=== PATIENT | female | born 1985 | race Caucasian/White ===

== ENCOUNTER 2021-06-05 13:52 | Outpatient (REF) | payer OTHER, SELFPAY | END 2021-06-05 13:53 | disposition home or self-care (01) | LOC: HO.LNP 13:52 | PROVIDERS: Visit Provider Hospitalist | DX: R50.9 Fever, unspecified (principal); Z20.822 Contact with and (suspected) exposure to COVID-19 | CPT/HCPCS: U0003; U0005 ==

== ENCOUNTER 2021-07-21 18:40 | Emergency (ER) | payer OTHER, SELFPAY ==
--- NOTE | ~2021-07-21 | XR_ITS ---
EXAMINATION: XR ELBOW, RIGHT CLINICAL INFORMATION: Lump. Pain. COMPARISON: None TECHNIQUE: AP, lateral, and oblique views of the right elbow. FINDINGS: Soft tissue swelling around the olecranon. There is a nonunited enthesophyte at the tip of the olecranon. This could be due to fracture of the spur or a chronic change. No prior films for comparison. The joint space is normal. There is no joint effusion. XR/XR elbow RT min 3V IMPRESSION: Soft tissue swelling around the olecranon. Nonunited enthesophyte at the olecranon which may be acute or chronic.
[2021-07-21 20:50] VITALS: BP 161/77; PULSE 76; RESP 16; TEMP 36.7; O2SAT 100; BMI 34.4
--- NOTE | 2021-07-21 23:44 | ED.UPPEXIN ---
HPI - Extremity Injury (Upper) General Chief Complaint: Skin/Abscess/Foreign Body Stated Complaint: ?Cyst on elbow Time Seen by Provider: 07/21/21 23:33 Source: patient Mode of arrival: ambulatory Limitations: no limitations History of Present Illness HPI narrative: Patient hit her right elbow to the car door handle earlier today followed by significant swelling of the right elbow no other injury Related Data Previous Rx's Medication Instructions Recorded levonorgestrel 1.5 mg tablet (Plan 1.5 mg PO ONCE 1 Days #1 tab 05/22/21 B One-Step) alprazolam 2 mg tablet 2 mg PO TID PRN 30 Days #90 tab 07/19/21 fluoxetine 40 mg capsule 40 mg PO DAILY 90 Days #90 cap 07/19/21 loratadine 10 mg tablet (Allergy 10 mg PO DAILY PRN 90 Days #90 tab 07/19/21 Relief (loratadine)) oxcarbazepine 300 mg tablet 300 mg PO BID 90 Days #180 tab 07/19/21 oxycodone 5 mg tablet 5 mg PO BID PRN 30 Days #60 tab 07/19/21 Allergies Allergy/AdvReac Type Severity Reaction Status Date / Time acetaminophen Allergy Unknown VOMITING Verified 06/05/21 11:36 [From FIORICET WITH CODEINE] aspirin [From FIORINAL] Allergy Unknown VOMITING Verified 06/05/21 11:36 butalbital Allergy Unknown VOMITING Verified 06/05/21 11:36 [From FIORICET WITH CODEINE] caffeine Allergy Unknown VOMITING Verified 06/05/21 11:36 [From FIORICET WITH CODEINE] codeine Allergy Unknown VOMITING Verified 06/05/21 11:36 [From FIORICET WITH CODEINE] sumatriptan [From IMITREX] Allergy Unknown VOMITING Verified 06/05/21 11:36 carisoprodol [Soma] AdvReac Unknown loopy Verified 06/05/21 11:36 Review of Systems Review of Systems: Yes all other systems are reviewed and are negative PMFSH Past Medical History Surgical History History of removal of cyst Family History Family History Father Hypertension Diabetes Stroke PVD (peripheral vascular disease) Drug addict Mother No problems noted. Paternal Grandfather Brain tumor Family/Other Stroke Drug addict History of ETOH abuse Social History Social History Patient Tobacco Use Status: Never used Tobacco Advance Directives: No Advance Directives Information Provided: No Patient : No Physical Exam Vital Signs: Vital Signs: Last Vital Signs Temp 98.1 F 07/21/21 20:50 Pulse 76 07/21/21 20:50 Resp 16 07/21/21 20:50 BP 161/77 H 07/21/21 20:50 Pulse Ox 100 07/21/21 20:50 BMI result Body Mass Index 34.4 Const: General: comfortable and no acute distress Extrem: Shoulder/upper arm images: 1. Swelling of the olecranon bursa with skin color is normal good range of right elbow joint movement MDM - Extremity Injury (Upper) MDM Narrative Medical decision making narrative: Needle aspiration of right olecranon swelling was done revealed blood patient swelling is likely from contusion of the right olecranon bursa x-ray negative patient felt better after fluid was removed Rambo wrap was applied for support Procedures Abscess I/D Site: upper extremity (Right elbow) Side (if applicable): right Local Anesthetic: lidocaine 2% Amount of anesthesia used (mL): 1 Technique: needle aspiration Amount of fluid expressed (mL): 1 Sent for culture/gram staining?: No Irrigation: No Packing used?: none Discharge Plan Discharge Clinical Impression: Contusion of elbow, right Qualifiers: Encounter type: initial encounter Qualified Code(s): S50.01XA - Contusion of right elbow, initial encounter Patient Disposition: Home, Self-Care Instructions: Contusion in Adults (ED) Additional Instructions: Wear the Rambo wrap, you have contusion of right olecranon bursa, your x-ray of right elbow was negative for fracture Ice pack Tylenol/Motrin for pain Prescriptions: No Action levonorgestrel [Plan B One-Step] 1.5 mg tablet 1.5 mg PO ONCE 1 Days Qty: 1 RF: 0 alprazolam 2 mg tablet 2 mg PO TID PRN (Reason: anxiety) 30 Days Qty: 90 RF: 0 fluoxetine 40 mg capsule 40 mg PO DAILY 90 Days Qty: 90 RF: 3 loratadine [Allergy Relief (loratadine)] 10 mg tablet 10 mg PO DAILY PRN (Reason: allergy symptoms) 90 Days Qty: 90 RF: 1 oxcarbazepine 300 mg tablet 300 mg PO BID 90 Days Qty: 180 RF: 1 oxycodone 5 mg tablet 5 mg PO BID PRN (Reason: pain) 30 Days Qty: 60 RF: 0
[2021-07-21] MEDS: Lidocaine HCl 2 % MPF 5 ML VIAL INFILTRATI (23:54)
--- NOTE | 2021-07-21 23:56 | PC.NURSE ---
RIGHT ELBOW CLEANED AND DRAINED BY DR FRITZ.
== END 2021-07-21 23:57 | disposition home or self-care (01) ==
PROVIDERS: Emergency Provider Internal Medicine; PCP Internal Medicine
DX: S50.01XA Contusion of right elbow, initial encounter (principal); L02.413 Cutaneous abscess of right upper limb; Y29.XXXA Contact with blunt object, undetermined intent, initial encounter; Y93.9 Activity, unspecified; Y92.9 Unspecified place or not applicable; Y99.9 Unspecified external cause status; Z79.899 Other long term (current) drug therapy
CPT/HCPCS: 10060; 73080; 99283; 99284

== ENCOUNTER 2021-07-31 09:37 | Outpatient (REF) | payer OTHER, SELFPAY ==
[2021-07-31 10:53] LABS: Amphetamine Screen Urine Not Detected (Not Detect); Barbiturates, Urine Not Detected (Not Detect); Benzodiazepines Screen Urine POSITIVE (Not Detect); Cannabinoid Screen Urine Not Detected (Not Detect); Cocaine Screen Urine Not Detected (Not Detect); Fentanyl, urine Not Detected (Not Detect); Opiate Screen Urine Not Detected (Not Detect); Phencyclidine Screen Urine Not Detected (Not Detect)
== END 2021-07-31 09:38 | disposition home or self-care (01) ==
LOC: HO.LAB 09:37
PROVIDERS: PCP Internal Medicine; Visit Provider Internal Medicine
DX: F11.90 Opioid use, unspecified, uncomplicated (principal)
CPT/HCPCS: 80307

== ENCOUNTER 2023-10-21 08:48 | Outpatient (AMB) | payer OTHER, SELFPAY ==
--- NOTE | 2023-10-21 09:16 | MHC.OFFWIV ---
Intake Vital Signs 10/21/23 09:19 Height 5 ft 7 in BP 130/80 Blood Pressure Location Lt brachial Position Sitting Pulse 77 Pulse Source Pulse Oximeter Temp 97.7 F Temp Source Temporal Artery Scan Pulse Oximetry (%) 98 Oxygen Delivery Method Room Air Intake Visit Reasons: EP Cut on toe ?Infection Intake Note: Pt is here c/o cut on right big toe that is now infected. Pt is here to confirm it is healing properly. Patient Tobacco Use Status: Never used Tobacco Allergies acetaminophen [From FIORICET WITH CODEINE] Allergy (Unknown, Verified 10/21/23 09:17) VOMITING aspirin [From FIORINAL] Allergy (Unknown, Verified 10/21/23 09:17) VOMITING butalbital [From FIORICET WITH CODEINE] Allergy (Unknown, Verified 10/21/23 09:17) VOMITING caffeine [From FIORICET WITH CODEINE] Allergy (Unknown, Verified 10/21/23 09:17) VOMITING codeine [From FIORICET WITH CODEINE] Allergy (Unknown, Verified 10/21/23 09:17) VOMITING sumatriptan [From IMITREX] Allergy (Unknown, Verified 10/21/23 09:17) VOMITING carisoprodol [Soma] Adverse Reaction (Unknown, Verified 10/21/23 09:17) loopy Do you need a note to return to daycare/school/sports/work: No HPI HPI Comments History of Present Illness Details pt presents to the walkin today for sick visit complaining of 4 days left great toe pain, swelling and drainage She reports this started after she used cuticle clippers and accidentally cut her cuticle Endorses some crusty drainage She has been cleaning it daily and states the pressure has released but she is concerned about the continued redness denies fevers, chills, pain up the foot/leg [facility] Medical History (Updated 10/21/23 @ 09:38 by Carolyn Elliott APRN, TANK REFINISHER) Obesity (BMI 30.0-34.9) Mild recurrent major depression Polyarthralgia SHELL (generalized anxiety disorder) Physical exam Surgical History History of removal of cyst Family History (Updated 11/23/21 @ 16:04 by Lillian Barnes MD) Father Hypertension Diabetes Stroke PVD (peripheral vascular disease) Drug addict Mother Diabetes Paternal Grandfather Brain tumor Family/Other Stroke Drug addict History of ETOH abuse Social History Housing: House Alcohol intake: current Alcohol intake frequency: holidays/special occasions only Alcohol type: beer Patient Tobacco Use Status: Never used Tobacco e-Cigarette/Vaping Use: Never Used Second Hand Smoke Exposure: No service: No Current occupational status: unemployed Cognitive needs: No Hearing needs: No Vision needs: No Review of Systems Const All systems reviewed & are unremarkable except as noted in HPI and below Physical Exam Vital Signs: Last Vital Signs Temp 97.7 F 10/21/23 09:19 Pulse 77 10/21/23 09:19 BP 130/80 10/21/23 09:19 Pulse Ox 98 10/21/23 09:19 Oxygen Delivery Method Room Air 10/21/23 09:19 General: awake, alert, oriented. Answers questions appropriately. Fully engaged in examination. Skin: warm, dry, intact HEENT: Normocephalic. Hearing intact. Cardiac: External chest normal in appearance. Respiratory: No cough, audible wheezing or stridor. Abdomen: without gross distension. MS: left great toe with redness along proximal nail line. crusty drainage noted. no lymphangitis. Neurological: Oriented to person, place, time and situation. Thought process intact. No gait abnormalities appreciated. Psychiatric: Appropriate mood and affect. Good judgment and insight. Assessment & Plan Assessment & Plan (1) Cellulitis: Code(s): L03.90 - Cellulitis, unspecified Plan Keflex 500mg po TID X 7 days Epsom salt soaks follow up with primary care doctor or return here for any new or worsening symptoms. all questions and concerns were answered, patient agrees with the plan. Medications: New cephalexin 500 mg PO TID 7 days 21 caps 0RF Coding Level of Care Code Est Pt Level 3 (02732) Diagnoses Cellulitis L03.90
[2023-10-21 09:19] VITALS: BP 130/80; PULSE 77; TEMP 36.5; O2SAT 98
== END 2023-10-21 10:03 | disposition home or self-care (01) ==
PROVIDERS: PCP Internal Medicine; Visit Provider Registered Nurse Emergency
DX: L03.90 Cellulitis, unspecified (principal)
CPT/HCPCS: 99213

== ENCOUNTER 2025-02-10 16:48 | Outpatient (AMB) | payer OTHER, SELFPAY ==
--- NOTE | 2025-02-10 16:50 | A.OFFPC_ITS ---
Vital Signs 02/10/25 16:51 Height 5 ft 7 in Weight 203 lb BMI 31.8 BP 126/82 Blood Pressure Location Lt brachial Position Sitting Intake Visit Reasons: Annual physical Intake Note: Patient here for a physical exam Service Writer Required: No Accompanied by: Self / Same As Patient Allergies acetaminophen (From FIORICET WITH CODEINE) Allergy (Unknown, Verified 02/10/25 16:59) VOMITING aspirin (From FIORINAL) Allergy (Unknown, Verified 02/10/25 16:59) VOMITING butalbital (From FIORICET WITH CODEINE) Allergy (Unknown, Verified 02/10/25 16:59) VOMITING caffeine (From FIORICET WITH CODEINE) Allergy (Unknown, Verified 02/10/25 16:59) VOMITING codeine (From FIORICET WITH CODEINE) Allergy (Unknown, Verified 02/10/25 16:59) VOMITING sumatriptan (From IMITREX) Allergy (Unknown, Verified 02/10/25 16:59) VOMITING carisoprodol (Soma) Adverse Reaction (Unknown, Verified 02/10/25 16:59) loopy Medication List - Last Reconciled 02/10/25 by Lillian Barnes MD alprazolam 2 mg PO TID PRN 30 days fluoxetine 40 mg PO DAILY 90 days loratadine (Allergy Relief (loratadine)) 10 mg PO DAILY PRN 90 days oxcarbazepine 300 mg PO BID 90 days oxycodone 5 mg PO BID PRN 30 days Tobacco use date assessed: 02/10/25 Dental Screening Dental Screen Date: 02/10/25 Did you have a dental visit in the last 12 months?: No Did you have a dental problem in the last 6 months where you did not have access to dental care?: No Was dental information given to patient?: Patient has dentist HPI HPI Comments History of Present Illness Details The patient is a 39-year-old female presenting for a physical examination and management of chronic conditions. She reports constipation, which is likely secondary to oxycodone use for bilateral hip osteoarthritis. Her anxiety is well-controlled, but she experiences mild depression, as indicated by a low PHQ-9 score, and is seeking counseling. The patient occasionally uses marijuana and is considering obtaining a medical marijuana card for pain management. A pain management contract was signed during this visit. In terms of preventative care, a mammogram will be ordered, and she acknowledges that her last Pap smear was over five years ago, prompting her to seek an PRINCIPAL MILITARY ANALYST for follow-up. Her Tdap vaccination was last administered in 2015, with the next dose due in 2025. 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 - Tdap vaccine due in 2025 [facility] Medical History (Updated 02/10/25 @ 20:53 by Lillian Barnes MD) Obesity (BMI 30.0-34.9) Mild recurrent major depression Polyarthralgia SHELL (generalized anxiety disorder) Physical exam Surgical History History of removal of cyst Family History Father Hypertension Diabetes Stroke PVD (peripheral vascular disease) Drug addict Mother Diabetes Paternal Grandfather Brain tumor Family/Other Stroke Drug addict History of ETOH abuse Mental health disorder Social History Housing: House Alcohol intake: current Alcohol intake frequency: holidays/special occasions only Alcohol type: beer Patient Tobacco Use Status: Never used Tobacco e-Cigarette/Vaping Use: Never Used Second Hand Smoke Exposure: No service: No Current occupational status: unemployed Cognitive needs: No Hearing needs: No Vision needs: No Questionnaire PHQ-9 Over the last 2 weeks, how often have you been bothered by any of the following problems? 1. Little interest or pleasure in doing things: more than half the days 2. Feeling down, depressed, or hopeless: several days 3. Trouble falling or staying asleep, or sleeping too much: several days 4. Feeling tired or having little energy: several days 5. Poor appetite or overeating: several days 6. Feeling bad about yourself - or that you are a failure or have let yourself or your family down: not at all 7. Trouble concentrating on things, such as reading the newspaper or watching television: several days 8. Moving or speaking so slowly that other people could have noticed. Or the opposite - being so fidgety or restless that you have been moving around a lot more than usual: not at all 9. Thoughts that you would be better off or of hurting yourself in some way: not at all Total score: 7 Depression Screening Interpretation: Positive Depression Screening Follow-up: Existing condition, In treatment, Community Mental Health Worker F/U and Follow- up Visit Requested Depression Screening Done: Yes 16198 - PHQ-9 Billing: Yes Source: Developed by Drs. Eligio Johnson, Little Campa, Craig Chambers and colleagues, with an educational maría from [employer]. Thrive Questionnaire Date Thrive assessed: 02/10/25 I am a: Patient What is your living situation today?: I have a steady place to live Within the past 12 months, did the food you bought not last and you didn't have the money to get more?: Never true Within the past 12 months, did you worry whether your food would run out before you got money to buy more?: Never true Do you have trouble paying for medicines?: No Do you have trouble getting transportation to medical appointments?: No Do you have trouble paying your heating and electricity bill?: No Do you have trouble taking care of your child, family member or friend?: No Do you have trouble with day-to-day activities such as bathing, preparing meals, shopping, managing finances, etc.?: No Are you currently unemployed and looking for a job?: No Are you interested in more education?: No Please select the resources that you would like help with: None Currently or been in a relationship where the following occur: No concerns reported THRIVE Score: 0 AUDIT C Alcohol Use Questionnaire (AUDIT-C) 1. How often do you have a drink containing alcohol?: Monthly or less 2. How many drinks containing alcohol do you have on a typical day when you are drinking?: 1 or 2 3. How often do you have six or more drinks on one occasion?: Never Total Score: 1 Score Reviewed/Action Taken: No SHELL-7 AMB Questionnaire SHELL-7 Date SHELL - 7 assessed: 02/10/25 Feeling nervous, anxious, or on edge: 0 = Not at all Not being able to stop or control worryin = Not at all Worrying too much about different things: 0 = Not at all Trouble relaxin = Not at all Being so restless that it is hard to sit still: 0 = Not at all Becoming easily annoyed or irritable: 1 = Several days Feeling afraid as if something awful might happen: 0 = Not at all Total SHELL-7 score (0-4 normal; 5-9 mild; 10-14 moderate; 15-21 severe): 1 Source: Developed by Drs. Eligio Jhonson, Little Campa, Craig Chambers and colleagues, with an educational maría from [employer]. SHELL-7 Assessment Billing SHELL-7 Assessment Tool: SHELL-7 Assessment 19611 Review of Systems Const All systems reviewed & are unremarkable except as noted in HPI and below Card Denies chest pain at rest, Denies chest pain with activity, Denies edema, Denies irregular heart rhythm, Denies claudication, Denies dyspnea, Denies dyspnea on exertion, Denies orthopnea, Denies paroxysmal nocturnal dyspnea and Denies slow heart rate Resp Denies cough, Denies dyspnea and Denies dyspnea on exertion GI Denies abdominal pain, Denies change in bowel habits, Denies excessive flatus, Denies nausea and Denies vomiting Denies urinary incontinence, Denies urinary hesitancy and Denies urinary urgency Neuro Denies behavioral changes and Denies lack of coordination Psych Denies behavioral changes Physical exam (Primary Care) Vital Signs: Last Vital Signs BP 126/82 02/10/25 16:51 BMI result Body Mass Index 31.8 Tobacco/Smoking Status: Tobacco use Status Tobacco use date assessed 02/10/25 02/10/25 16:56 Patient Tobacco Use Status Never used Tobacco 02/10/25 16:56 e-Cigarette/Vaping Use Never Used 02/10/25 16:56 PHQ-9: PHQ-9 Score PHQ-9: Total score 7 02/10/25 17:10 Depression Screening Interpretation: Positive Depression Screening Follow-up: Existing condition, In treatment, Community Mental Health Worker F/U and Follow- up Visit Requested Thrive Assessment: Date of Thrive Assessment Date Thrive assessed 02/10/25 02/10/25 16:56 Currently or been in a relationship where the following occur: No concerns reported [facility] Head: Yes normal to inspection, Yes normocephalic and Yes atraumatic Ears: external ears normal Eyes General: appearance normal, both eyes and all related structures Eyelids: Yes eyelids normal Conjunctivae: conjunctivae normal Neck Neck: Yes normal visual inspection and Yes supple Resp Effort & Inspection: normal respiratory effort Auscultation: clear to auscultation bilaterally Cardio Jugular venous distension: no JVD Rate: regular rate Rhythm: regular rhythm Heart sounds: S1 normal heart sound present and S2 normal heart sound present GI Inspection: Yes normal to inspection Palpation (GI): Soft to palpation and nontender Auscultation: normal bowel sounds Skin General skin exam: no rashes or lesions noted Neuro General: no focal motor deficits Extrem General: Yes full ROM Psych Appearance: grossly normal Coding Level of Care Code Est Pt Level 3 (33601) Est Pt Prev Care 40-64y(22318) Diagnoses Physical exam Z00.00 Mild recurrent major depression F33.0 SHELL (generalized anxiety disorder) F41.1 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; T40.2X5A Osteoarthritis, hip, bilateral M16.0 Additional Codes SHELL-7 Assessment Billing - SHELL-7 Assessment Tool: SHELL-7 Assessment 14815 ([id number]) PHQ-9 - 71203 - PHQ-9 Billing: Yes ([id number]) Time Spent (min) 36 Assessment & Plan Assessment & Plan (1) Physical exam: Code(s): Z00.00 - Encounter for general adult medical examination without abnormal findings Category: Medical (2) Mild recurrent major depression: Code(s): F33.0 - Major depressive disorder, recurrent, mild Category: Medical (3) SHELL (generalized anxiety disorder): Code(s): F41.1 - Generalized anxiety disorder Category: Medical (4) Opioid-induced constipation: Code(s): K59.03 - Drug induced constipation; T40.2X5A - Adverse effect of other opioids, initial encounter Category: Medical (5) Osteoarthritis, hip, bilateral: Comment: Pain management contract signed 02/10/2025 Code(s): M16.0 - Bilateral primary osteoarthritis of hip Category: Medical Plan The patient will have a mammogram ordered as part of her preventative care measures. She is advised to seek an PRINCIPAL MILITARY ANALYST for a Pap smear, as her last one was over five years ago. A Tdap vaccine is due in 2025, following her last dose in 2016. For her constipation, likely due to oxycodone use for bilateral hip osteoarthritis, docusate will be prescribed. Her anxiety is well-controlled, but she is experiencing mild depression and is seeking counseling services. The patient occasionally uses marijuana and is considering obtaining a medical marijuana card for pain management. A pain management contract was signed today to ensure appropriate use of medications. Patient was informed and verbally consented to the use of an ambient scribe for clinic note documentation during this visit. Orders: Orders MM tomosynthesis screening BI Today Z12.31 - Encounter for screening mammogram for malignant neoplasm of breast Lipid Panel Today Z00.00 - Encounter for general adult medical examination without abnormal findings Comprehensive [place]. Panel Fast Today Z00.00 - Encounter for general adult medical examination without abnormal findings Medications: New docusate sodium 100 mg PO DAILY 90 days 90 caps 1RF K59.03 - Drug induced constipation, T40.2X5A - Adverse effect of other opioids, initial encounter docusate sodium 100 mg PO DAILY 90 caps 1RF 90 days K59.03 - Drug induced constipation, T40.2X5A - Adverse effect of other opioids, initial encounter Changed From oxycodone 5 mg PO BID 30 days PRN 60 tabs 0RF pain M16.0 - Bilateral primary osteoarthritis of hip To oxycodone 5 mg PO Q8H PRN 90 tabs 0RF pain 30 days M16.0 - Bilateral primary osteoarthritis of hip
[2025-02-10 16:51] VITALS: BP 126/82; BMI 31.8
== END 2025-02-10 17:23 | disposition home or self-care (01) ==
LOC: HO.HMCH 16:48
PROVIDERS: PCP Internal Medicine; Visit Provider Internal Medicine
DX: Z00.00 Encounter for general adult medical examination without abnormal findings (principal); F33.0 Major depressive disorder, recurrent, mild; F41.1 Generalized anxiety disorder; K59.03 Drug induced constipation; T40.2X5A Adverse effect of other opioids, initial encounter; M16.0 Bilateral primary osteoarthritis of hip

== ENCOUNTER → 2025-02-10 16:48 | Outpatient (BNVA) | payer OTHER, SELFPAY | PROVIDERS: PCP Internal Medicine; Visit Provider Internal Medicine | DX: Z00.00 Encounter for general adult medical examination without abnormal findings (principal); M17.0 Bilateral primary osteoarthritis of knee; F33.0 Major depressive disorder, recurrent, mild; F41.1 Generalized anxiety disorder; K59.03 Drug induced constipation; T40.2X5A Adverse effect of other opioids, initial encounter; M16.0 Bilateral primary osteoarthritis of hip | CPT/HCPCS: 96127; 99212; 99396 ==

== ENCOUNTER 2025-03-03 08:14 | Outpatient (REF) | payer OTHER, SELFPAY ==
[2025-03-03 10:41] LABS: Alanine Aminotransferase 19 U/L (0-31); Albumin Level 4.4 g/dL (3.5-5.0); Alkaline Phosphatase 78 U/L (39-117); Anion Gap 12 (12-20); Aspartate Amino Transferase 22 U/L (5-31); Blood Urea Nitrogen 12 mg/dL (9-16); Calcium 8.8 mg/dL (8.4-10.2); Carbon Dioxide 26 mmol/L (22-29); Chloride 105 mmol/L (96-108); Cholesterol 243 mg/dL (<200); Estimated Glomerular Filt Rate > 60; HDL Cholesterol 60 mg/dL (>40); Potassium 3.8 mmol/L (3.3-5.1); Sodium 139 mmol/L (135-145); Total Protein 7.7 g/dL (6.5-8.0); Triglycerides 141 mg/dL (<150)
== END 2025-03-03 08:15 | disposition home or self-care (01) ==
LOC: HO.LAB 08:14
PROVIDERS: Visit Provider Internal Medicine
DX: Z00.00 Encounter for general adult medical examination without abnormal findings (principal)
CPT/HCPCS: 36415; 80053; 80061

== ENCOUNTER 2025-04-27 16:10 | Outpatient (REF) | payer OTHER, SELFPAY | END 2025-04-27 16:11 | disposition home or self-care (01) | LOC: HO.MAMMO 16:10 | PROVIDERS: PCP Internal Medicine; Visit Provider Internal Medicine | DX: Z12.31 Encounter for screening mammogram for malignant neoplasm of breast (principal) | CPT/HCPCS: 77063; 77067 ==

== ENCOUNTER → 2025-04-27 16:15 | Outpatient (BNV) | payer OTHER, SELFPAY | PROVIDERS: PCP Internal Medicine; Visit Provider Internal Medicine | DX: Z12.31 Encounter for screening mammogram for malignant neoplasm of breast (principal) | CPT/HCPCS: 77063; 77067 ==

== ENCOUNTER 2025-05-06 15:49 | Outpatient (AMB) | payer OTHER, SELFPAY ==
--- NOTE | 2025-05-06 15:51 | A.OFFPC_ITS ---
Vital Signs 05/06/25 15:52 Height 5 ft 7 in Weight 205 lb BMI 32.1 BP 132/80 Blood Pressure Location Lt brachial Position Sitting Pulse 93 Pulse Source Pulse Oximeter Pulse Oximetry (%) 97 Oxygen Delivery Method Room Air Intake Visit Reasons: LT hand tingling sensation Segmental Paver Installer Required: No Accompanied by: Self / Same As Patient Allergies acetaminophen (From FIORICET WITH CODEINE) Allergy (Unknown, Verified 05/06/25 16:06) VOMITING aspirin (From FIORINAL) Allergy (Unknown, Verified 05/06/25 16:06) VOMITING butalbital (From FIORICET WITH CODEINE) Allergy (Unknown, Verified 05/06/25 16:06) VOMITING caffeine (From FIORICET WITH CODEINE) Allergy (Unknown, Verified 05/06/25 16:06) VOMITING codeine (From FIORICET WITH CODEINE) Allergy (Unknown, Verified 05/06/25 16:06) VOMITING sumatriptan (From IMITREX) Allergy (Unknown, Verified 05/06/25 16:06) VOMITING carisoprodol (Soma) Adverse Reaction (Unknown, Verified 05/06/25 16:06) loopy Medication List - Last Reconciled 05/06/25 by Lillian Barnes MD alprazolam 2 mg PO TID PRN 30 days docusate sodium 100 mg PO DAILY 90 days fluoxetine 40 mg PO DAILY 90 days loratadine (Allergy Relief (loratadine)) 10 mg PO DAILY PRN 90 days naloxone 4 mg/actuation (Narcan) 4 mg intranasal Q2M PRN 30 days oxcarbazepine 300 mg PO BID 90 days oxycodone 5 mg PO Q8H PRN 30 days Tobacco use date assessed: 05/06/25 Dental Screening Dental Screen Date: 05/06/25 Did you have a dental visit in the last 12 months?: No Did you have a dental problem in the last 6 months where you did not have access to dental care?: No Was dental information given to patient?: No HPI HPI Comments History of Present Illness Details The patient is a 39-year-old female presenting with tingling and numbness in the fingers, along with pain and swelling in the hand and wrist. The symptoms began approximately a week ago, with the patient experiencing severe pain that disrupted her sleep and daily activities. The pain is described as shooting up the arm, with the middle finger being particularly affected, resulting in an inability to move it properly. The patient reports that the pain is alleviated by using a heating pad and resting the arm in a specific position, although the tingling persists. She has been taking ibuprofen and Aleve to manage the inflammation and pain, but these have not completely resolved the symptoms. The patient also mentioned experiencing neck pain, which has since resolved, and chest pain, which she attributes to anxiety and recent stressors. She has chronic hip pain relieved by opiates and is on a pain management contract signed February 2025. Aware that can cause addiction, sedation and respiratory depression. Also has depression with anxiety stable with benzodiazepines which can cause addiction, sedation and dementia. Additionally, she has a history of high cholesterol and has been managing it with medication. The patient experienced adverse effects from a constipation medication, leading to its discontinuation. [facility] Medical History (Updated 05/06/25 @ 21:43 by Lillian Barnes MD) Obesity (BMI 30.0-34.9) Mild recurrent major depression Polyarthralgia SHELL (generalized anxiety disorder) Physical exam Surgical History History of removal of cyst Family History Father Hypertension Diabetes Stroke PVD (peripheral vascular disease) Drug addict Mother Diabetes Paternal Grandfather Brain tumor Family/Other Stroke Drug addict History of ETOH abuse Mental health disorder Social History Housing: House Alcohol intake: current Alcohol intake frequency: holidays/special occasions only Alcohol type: beer Patient Tobacco Use Status: Never used Tobacco e-Cigarette/Vaping Use: Never Used Second Hand Smoke Exposure: No service: No Current occupational status: unemployed Cognitive needs: No Hearing needs: No Vision needs: No Questionnaire Thrive Questionnaire Date Thrive assessed: 02/10/25 I am a: Patient What is your living situation today?: I have a steady place to live Within the past 12 months, did the food you bought not last and you didn't have the money to get more?: Never true Within the past 12 months, did you worry whether your food would run out before you got money to buy more?: Never true Do you have trouble paying for medicines?: No Do you have trouble getting transportation to medical appointments?: No Do you have trouble paying your heating and electricity bill?: No Do you have trouble taking care of your child, family member or friend?: No Do you have trouble with day-to-day activities such as bathing, preparing meals, shopping, managing finances, etc.?: No Are you currently unemployed and looking for a job?: No Are you interested in more education?: No Please select the resources that you would like help with: None Currently or been in a relationship where the following occur: No concerns reported THRIVE Score: 0 AUDIT C Alcohol Use Questionnaire (AUDIT-C) 1. How often do you have a drink containing alcohol?: Monthly or less 2. How many drinks containing alcohol do you have on a typical day when you are drinking?: 1 or 2 3. How often do you have six or more drinks on one occasion?: Never Total Score: 1 Score Reviewed/Action Taken: No SHELL-7 AMB Questionnaire SHELL-7 Date SHELL - 7 assessed: 02/10/25 Source: Developed by Drs. Eligio Johnson, Little Campa, Craig Chambers and colleagues, with an educational maría from [employer]. Review of Systems Const All systems reviewed & are unremarkable except as noted in HPI and below Card Denies chest pain at rest, Denies chest pain with activity, Denies edema, Denies irregular heart rhythm, Denies claudication, Denies dyspnea, Denies dyspnea on exertion, Denies orthopnea, Denies paroxysmal nocturnal dyspnea and Denies slow heart rate Resp Denies cough, Denies dyspnea and Denies dyspnea on exertion Physical exam (Primary Care) Vital Signs: Last Vital Signs Pulse 93 05/06/25 15:52 BP 132/80 05/06/25 15:52 Pulse Ox 97 05/06/25 15:52 Oxygen Delivery Method Room Air 05/06/25 15:52 BMI result Body Mass Index 32.1 BMI Assessment/Plan discussion: High BMI High, discussed plan: lifestyle, weight reduction, dietary and physical activity Tobacco/Smoking Status: Tobacco use Status Tobacco use date assessed 05/06/25 05/06/25 15:57 Patient Tobacco Use Status Never used Tobacco 05/06/25 15:57 e-Cigarette/Vaping Use Never Used 05/06/25 15:57 Thrive Assessment: Date of Thrive Assessment Date Thrive assessed 02/10/25 05/06/25 15:57 Currently or been in a relationship where the following occur: No concerns reported Resp Effort & Inspection: normal respiratory effort Auscultation: clear to auscultation bilaterally Cardio Jugular venous distension: no JVD Rate: regular rate Rhythm: regular rhythm Heart sounds: S1 normal heart sound present and S2 normal heart sound present Extrem General: Yes full ROM Coding Level of Care Code Est Pt Level 4 (06142) Complex EM visit Add On G2211 Diagnoses Mild recurrent major depression F33.0 SHELL (generalized anxiety disorder) F41.1 Paresthesia of hand, bilateral R20.2 Bilateral primary osteoarthritis of hip M16.0 Chronic prescription opiate use Z79.891 Time Spent (min) 22 Assessment & Plan Assessment & Plan (1) Mild recurrent major depression: Code(s): F33.0 - Major depressive disorder, recurrent, mild Category: Medical (2) SHELL (generalized anxiety disorder): Code(s): F41.1 - Generalized anxiety disorder Category: Medical (3) Paresthesia of hand, bilateral: Code(s): R20.2 - Paresthesia of skin Category: Medical (4) Bilateral primary osteoarthritis of hip: Code(s): M16.0 - Bilateral primary osteoarthritis of hip Category: Medical (5) Chronic prescription opiate use: Code(s): Z79.891 - senior living (current) use of opiate analgesic Category: Medical Plan Nerve conduction study ordered. X-ray of the left wrist ordered. Start ibuprofen as needed. Start cyclobenzaprine at bedtime. Start occupational t herapy. Orders: Orders XR wrist LT 2V Today M25.532 - Pain in left wrist NE electromyogram (EMG) Today R20.2 - Paresthesia of skin NE nerve conduction velocity Today R20.2 - Paresthesia of skin OT Evaluation and Treatment Today M25.532 - Pain in left wrist Referrals Orthopedics Referral M25.532 - Pain in left wrist Medications: New cyclobenzaprine 10 mg PO BEDTIME PRN 30 tabs 0RF muscle spasm 30 days ibuprofen 800 mg PO Q8H PRN 30 tabs 0RF pain 10 days Discontinued docusate sodium Discontinued Reason: Patient Completed Course 100 mg PO DAILY 90 days 90 caps 1RF K59.03 - Drug induced constipation, T40.2X5A - Adverse effect of other opioids, initial encounter
[2025-05-06 15:52] VITALS: BP 132/80; PULSE 93; O2SAT 97; BMI 32.1
== END 2025-05-06 16:26 | disposition home or self-care (01) ==
LOC: HO.HMCH 15:50
PROVIDERS: PCP Internal Medicine; Visit Provider Internal Medicine
DX: F33.0 Major depressive disorder, recurrent, mild (principal); F41.1 Generalized anxiety disorder; R20.2 Paresthesia of skin; M16.0 Bilateral primary osteoarthritis of hip; Z79.891 Long term (current) use of opiate analgesic

== ENCOUNTER → 2025-05-06 15:49 | Outpatient (BNVA) | payer OTHER, SELFPAY | PROVIDERS: PCP Internal Medicine; Visit Provider Internal Medicine | DX: F33.0 Major depressive disorder, recurrent, mild (principal); F41.1 Generalized anxiety disorder; R20.2 Paresthesia of skin; M16.0 Bilateral primary osteoarthritis of hip; Z79.891 Long term (current) use of opiate analgesic | CPT/HCPCS: 99212 ==

== ENCOUNTER 2025-05-07 09:35 | Outpatient (REF) | payer OTHER, SELFPAY ==
--- NOTE | ~2025-05-07 | XR_ITS ---
EXAMINATION: XR WRIST, LEFT CLINICAL INFORMATION: M25.532 - Pain in left wrist COMPARISON: None available. TECHNIQUE: PA, lateral, and oblique views of the left wrist. Scaphoid projection. FINDINGS: The carpal bones are intact with normal alignment. Small well-corticated calcifications in the volar aspect of the wrist. No lytic or blastic lesions. The metacarpal bones are intact. Distal radius and ulna are intact. XR/XR wrist LT min 3V IMPRESSION: Consider CPPD versus prior trauma Electronically signed by: Giles Kidd MD 05/07/2025 09:59 AM EDT
== END 2025-05-07 09:36 | disposition home or self-care (01) ==
LOC: HO.XRAY 09:35
PROVIDERS: PCP Internal Medicine; Visit Provider Internal Medicine
DX: M25.532 Pain in left wrist (principal)
CPT/HCPCS: 73110

== ENCOUNTER → 2025-05-07 09:38 | Outpatient (BNV) | payer OTHER, SELFPAY | PROVIDERS: PCP Internal Medicine; Visit Provider Radiology Diagnostic Radiology | DX: M25.532 Pain in left wrist (principal) | CPT/HCPCS: 73110 ==

== ENCOUNTER 2025-05-13 08:41 | Outpatient (REF) | payer OTHER, SELFPAY ==
--- NOTE | 2025-05-13 10:08 | EMG_ITS ---
Chief complaint: Pain of hand-bilateral - Left greater - left tip 3rd digit numbness Reason for referral: Evaluate for Carpal tunnel syndrome, radiculopathy Referred by: Lillian Barnes MD Procedure done: Bilateral upper extremities NCS and EMG Description: Bilateral median and ulnar motor and sensory studies were performed bilateral radial sensory, median and lateral antecubital brachial sensory and left median ortho sensory through digit 2nd and 3rd, ring and middle finger were performed. EMG needle examination was performed. No significant abnormality was noted on either of these studies. Impression: This is an unremarkable study with no evidence of entrapment neuropathy, plexopathy or radiculopathy. MTDD
== END 2025-05-13 08:42 | disposition home or self-care (01) ==
LOC: HO.NEURO 08:41
PROVIDERS: PCP Internal Medicine; Visit Provider Internal Medicine
DX: R20.2 Paresthesia of skin (principal)
CPT/HCPCS: 95886; 95913

== ENCOUNTER → 2025-05-13 10:08 | Outpatient (BNV) | payer OTHER, SELFPAY | PROVIDERS: PCP Internal Medicine; Visit Provider Psychiatry & Neurology Neurology | DX: R20.2 Paresthesia of skin (principal) | CPT/HCPCS: 95886; 95911 ==

== ENCOUNTER 2025-07-21 10:36 | Outpatient (AMB) | payer OTHER, SELFPAY ==
[2025-07-21 10:38] VITALS: BMI 32.1
--- NOTE | 2025-07-21 10:38 | A.OFFVIS_ITS ---
Vital Signs 07/21/25 10:38 Height 5 ft 7 in Weight 205 lb BMI 32.1 Intake Visit Reasons: INTERNAL CONTROL CONSULTANT-B/L hand EMG/NCS review Intake Note: Elina is a 39 year old right hand dominant female who presents today as a New Patient for evaluation of Bilateral Hand Numbness & Tingling. Patient reports for the past 2 months she has been experiencing numbness from the ulnar aspect of her left forearm down to her left thumb. She has been unable to fully bend her left thumb and left index due to weakness and limited ROM. She explains this bothers her daily and constantly. She wakes through the night due to the numbness. She also complains of numbness at the DIP of her left middle finger, primarily on the volar aspect. She takes Oxycodone and Ibuprofen for other health problems that also help alleviate her left hand pain. She denies finger locking. She denies previous injuries or surgeries to the left hand. Patient reports history of Stroke. Impression 05/13/25: This is an unremarkable study with no evidence of entrapment neuropathy, plexopathy or radiculopathy. Allergies acetaminophen (From FIORICET WITH CODEINE) Allergy (Unknown, Verified 07/21/25 10:48) VOMITING aspirin (From FIORINAL) Allergy (Unknown, Verified 07/21/25 10:48) VOMITING butalbital (From FIORICET WITH CODEINE) Allergy (Unknown, Verified 07/21/25 10:48) VOMITING caffeine (From FIORICET WITH CODEINE) Allergy (Unknown, Verified 07/21/25 10:48) VOMITING codeine (From FIORICET WITH CODEINE) Allergy (Unknown, Verified 07/21/25 10:48) VOMITING sumatriptan (From IMITREX) Allergy (Unknown, Verified 07/21/25 10:48) VOMITING carisoprodol (Soma) Adverse Reaction (Unknown, Verified 07/21/25 10:48) loopy HPI HPI INTERNAL CONTROL CONSULTANT-B/L hand EMG/NCS review: Details: Elina is a 39 year old right hand dominant female who presents today as a New Patient for evaluation of Bilateral Hand Numbness & Tingling. Patient reports for the past 2 months she has been experiencing numbness from the radial aspect of her left forearm down to her left thumb. Patient reports that this pain is worst in the area of the radial styloid She has been unable to fully bend her left thumb and left index due to weakness and limited ROM, primarily in the area of the left radial styloid.. She explains this bothers her daily and constantly. She wakes through the night due to the numbness. She also complains of numbness at the DIP of her left middle finger, primarily on the volar aspect. She takes Oxycodone and Ibuprofen for other health problems that also help alleviate her left hand pain. She denies finger locking. She denies previous injuries or s urgeries to the left hand. Patient reports history of Stroke. Impression 05/13/25: This is an unremarkable study with no evidence of entrapment neuropathy, plexopathy or radiculopathy. [facility] Medical History Obesity (BMI 30.0-34.9) Mild recurrent major depression Polyarthralgia SHELL (generalized anxiety disorder) Physical exam Surgical History History of removal of cyst Family History Father Hypertension Diabetes Stroke PVD (peripheral vascular disease) Drug addict Mother Diabetes Paternal Grandfather Brain tumor Family/Other Stroke Drug addict History of ETOH abuse Mental health disorder Social History Housing: House Alcohol intake: current Alcohol intake frequency: holidays/special occasions only Alcohol type: beer Patient Tobacco Use Status: Never used Tobacco e-Cigarette/Vaping Use: Never Used Second Hand Smoke Exposure: No service: No Current occupational status: unemployed Cognitive needs: No Hearing needs: No Vision needs: No Review of Systems Const All systems reviewed & are unremarkable except as noted in HPI and below Physical Exam Vital Signs: BMI result Body Mass Index 32.1 Extrem Other: Patient is alert, oriented, and in no acute distress. Neuro: Normal sensation of the tips of all digits of the bilateral hand at this time Vascular: Cap refill brisk Pain: Significant tenderness to palpation of the left radial styloid Minimal tenderness to palpation of the left thumb or radial forearm Positive Minoo in the left ROM: Patient is able to make a closed fist with the 3rd through 5th digits of the left hand, does have limitations in range of motion of the 1st and 2nd digits of the left hand due to pain Skin: No lacerations or abrasions. General: No ecchymosis, erythema, or evidence of infection. Psych: Appears grossly normal Affect normal Attitude cooperative Assessment & Plan Assessment & Plan (1) De Quervain's tenosynovitis, left: Code(s): M65.4 - Radial styloid tenosynovitis [de Quervain] Category: Medical (2) Paresthesia of hand, bilateral: Code(s): R20.2 - Paresthesia of skin Category: Medical Plan 1. Left de Quervain tenosynovitis Patient is educated about this condition Patient is educated about the typical treatment and recovery course At this time, patient would like to hold off on steroid injection, and would like to proceed with OT and bracing to see if this will give her relief without invasive treatment measures Therefore, patient is provided with a comfort cool brace and a referral to occupational therapy for range of motion and strengthening of the left hand and wrist in the setting of de Quervain tenosynovitis Patient understands this and is amenable to this plan 2. Numbness and tingling of both hands Symptoms intermittent, daily, worse at night With negative EMG No acute intervention indicated with negative EMG Patient expresses that she is very thankful for this, and does not want to move forward with any surgical intervention If patient continues to experience numbness and tingling in 6 months, she should call us for referral for repeat EMG Patient understands this and is amenable to this plan Follow-up as needed with any acute concerns for recurrence or lack of improvement of symptoms Orders: Orders OT Evaluation and Treatment 05/06/25 M25.532 - Pain in left wrist Coding Level of Care Code New Pt Level 3 (11676) Diagnoses De Quervain's tenosynovitis, left M65.4 Paresthesia of hand, bilateral R20.2
== END 2025-07-21 11:16 | disposition home or self-care (01) ==
LOC: HO.HOS 10:36
PROVIDERS: PCP Internal Medicine
DX: M65.4 Radial styloid tenosynovitis [de Quervain] (principal); R20.2 Paresthesia of skin
CPT/HCPCS: 99203

== ENCOUNTER → 2025-07-21 10:36 | Outpatient (BNVA) | payer OTHER, SELFPAY | PROVIDERS: PCP Internal Medicine | DX: M65.4 Radial styloid tenosynovitis [de Quervain] (principal); R20.2 Paresthesia of skin; R20.0 Anesthesia of skin | CPT/HCPCS: 99202 ==